=== PATIENT | male | born 1965 | race Two or more races ===

== ENCOUNTER 2017-07-04 13:02 | Outpatient (CLI) | payer OTHER | END 2017-07-04 13:10 | disposition home or self-care (01) | LOC: SONOGRAMA 13:02 | DX: E04.1 Nontoxic single thyroid nodule (principal); E04.9 Nontoxic goiter, unspecified ==

== ENCOUNTER 2017-07-31 07:10 | Outpatient (CLI) | payer OTHER | END 2017-07-31 08:00 | disposition home or self-care (01) | LOC: NUCLEAR 07:10 | DX: I25.10 Atherosclerotic heart disease of native coronary artery without angina pectoris (principal); I70.298 Other atherosclerosis of native arteries of extremities, other extremity | CPT/HCPCS: 93923; 93930; 78452; 93017; A9500 ==

== ENCOUNTER 2017-08-01 07:30 | Outpatient (CLI) | payer OTHER | END 2017-08-01 08:30 | disposition home or self-care (01) | LOC: NUCLEAR 07:30 | DX: I87.2 Venous insufficiency (chronic) (peripheral) (principal) ==

== ENCOUNTER 2017-09-27 07:33 | Outpatient (CLI) | payer OTHER | END 2017-09-27 07:38 | disposition home or self-care (01) | LOC: SONOGRAMA 07:33 | DX: E04.1 Nontoxic single thyroid nodule (principal) ==

== ENCOUNTER 2020-01-30 13:14 | Outpatient (CLI) | payer OTHER | END 2020-01-30 13:27 | disposition home or self-care (01) | LOC: SONOGRAMA 13:14 → MAMO-SONO 14:15 | PROVIDERS: ATTEND Internal Medicine Sports Medicine | DX: E04.1 Nontoxic single thyroid nodule (principal) ==

== ENCOUNTER 2022-11-06 10:50 | Outpatient (CLI) | payer OTHER | END 2022-11-06 10:52 | disposition home or self-care (01) | LOC: NUCLEAR 10:50 | PROVIDERS: ATTEND Internal Medicine Sports Medicine | DX: M85.80 Other specified disorders of bone density and structure, unspecified site (principal) ==

== ENCOUNTER 2025-02-03 11:27 | Outpatient (CLI) | payer OTHER | END 2025-02-03 11:35 | disposition home or self-care (01) | LOC: SONOGRAMA 11:27 | PROVIDERS: ATTEND Internal Medicine Sports Medicine | DX: E04.1 Nontoxic single thyroid nodule (principal) ==

== ENCOUNTER → 2025-03-03 09:28 | Outpatient (CLI) | payer OTHER | END | disposition home or self-care (01) | LOC: NUCLEAR 09:28 | PROVIDERS: ATTEND Internal Medicine Sports Medicine | DX: M81.0 Age-related osteoporosis without current pathological fracture (principal) ==

== ENCOUNTER 2025-03-03 11:20 | Outpatient (CLI) | payer OTHER | END 2025-03-03 11:28 | disposition home or self-care (01) | LOC: RAD 11:20 | DX: M25.561 Pain in right knee (principal); M25.562 Pain in left knee ==